=== PATIENT | female | born 1965 | race Caucasian/White ===

== ENCOUNTER 2021-02-25 12:48 | Outpatient (RCR) | payer OTHER ==
[~2021-02-25 12:48] MED LIST: AMBIEN10 MG PO; ESTROGENS0.3 MG PO; FAMILY PHARMACY99 MG PO; ST. JOSEPH81 M1 PO; TYLENOL EXTRA500 M1 PO; ULTRAM50 MG PO
== END 2021-05-26 | disposition home or self-care (01) ==
LOC: PT
DX: M48.02 Spinal stenosis, cervical region (principal); M25.78 Osteophyte, vertebrae

== ENCOUNTER → 2023-04-27 | Outpatient (CLI) | payer OTHER | LOC: RAD 13:30 | DX: H53.2 Diplopia (principal); M47.812 Spondylosis without myelopathy or radiculopathy, cervical region | CPT/HCPCS: A9575 ==

== ENCOUNTER 2023-12-15 16:16 | Emergency (ER) | payer OTHER ==
[~2023-12-15] VITALS: Ht 152.4 cm; Wt 72.3 kg
[~2023-12-15 16:16] MED LIST changes: +AIMOVIG AU140 MG/1 M SQ; +KETOROLAC10 MG PO; +MELOXICAM15 MG PO; +NURTEC ODT75 MG PO; +PROAIR DIGIHAL90 MCG IH; +SERTRALINE50 MG PO; +TOPIRAMATE ER100 MG PO; +TRELEGY ELLIPT1 EACH IH
[2023-12-15] MEDS ORDERED: EPINEPHRIN0.3 MG/0.3 IJ (16:32)
[2023-12-15] MEDS ORDERED: ONDANSETRON HYDR4 MG PO (16:33)
[2023-12-15] MEDS ORDERED: IMITREX6 MG/0.52 SQ (16:33)
[2023-12-15] MEDS ORDERED: TIZANIDINE HYDRO4 MG PO (16:33)
[2023-12-15] MEDS ORDERED: EXCEDRIN MIGRA1 EACH PO (16:34)
[2023-12-15] MEDS ORDERED: VITAMIN D PO (16:34)
[2023-12-15 17:12] LABS: BASO # 0.03 K/mm3 (0.02-0.10); EOS # 0.45 K/mm3 (0.04-0.40); EOS % 8.4 % (1.0-5.0); HEMATOCRIT 44.6 % (37.0-47.0); HEMOGLOBIN 14.4 g/dL (12.5-16.0); LYMPH# 2.15 K/mm3 (1.50-4.00); MEAN CELL VOLUME 90 fl (78-100); MEAN CORPUSCULAR HEMOGLOBIN 29 pg (27-31); MEAN CORPUSCULAR HGB CONC 32 g/dL (33-37); MEAN PLATELET VOLUME 9.9 fl (7.4-10.4); MONO # 0.66 K/mm3 (0.20-0.80); NEU # 2.04 K/mm3 (1.40-6.50); PLATELET COUNT 273 K/mm3 (130-400); RED BLOOD COUNT 4.98 M/mm3 (4.10-5.30); RED CELL DISTRIBUTION WIDTH 12.5 % (11.5-14.5); WHITE BLOOD COUNT 5.3 K/mm3 (4.8-10.8)
[2023-12-15 17:18] LABS: ALBUMIN 3.9 g/dL (3.5-5.0)
[2023-12-15 17:21] LABS: TOTAL PROTEIN 6.7 g/dL (6.4-8.3)
[2023-12-15 17:23] LABS: TOTAL BILIRUBIN 0.3 mg/dL (0.2-1.2)
[2023-12-15 17:27] LABS: MAGNESIUM 2.15 mg/dL (1.60-2.60)
[2023-12-15] MEDS ORDERED: Dextrose/Magnesium Sulfate 100 ML IV ONE (17:45)
[2023-12-15] MEDS ORDERED: Promethazine 50 MG/ML 1 ML VIAL IM ONE (17:45)
[2023-12-15 19:15] VITALS: BP 131/91
== END 2023-12-15 19:15 | disposition home or self-care (01) ==
LOC: ED 16:16
PROVIDERS: Family Medicine
DX: G43.909 Migraine, unspecified, not intractable, without status migrainosus (principal)
CPT/HCPCS: J2550; J3475; J7120

== ENCOUNTER 2024-02-21 14:26 | Emergency (ER) | payer OTHER ==
[~2024-02-21] VITALS: Wt 80.5 kg
[~2024-02-21 14:26] MED LIST changes: +EPINEPHRIN0.3 MG/0.3 IJ; +EXCEDRIN MIGRA1 EACH PO; +IMITREX6 MG/0.52 SQ; +ONDANSETRON HYDR4 MG PO; +TIZANIDINE HYDRO4 MG PO; +VITAMIN D PO
[2024-02-21] MEDS ORDERED: methylPREDNISolone Sod Succ 125 MG/2 ML VIAL IM ONE (14:45)
[2024-02-21] MEDS ORDERED: diphenhydrAMINE 25 MG CAP PO ONE (14:45)
[2024-02-21] MEDS ORDERED: ATORVASTATIN CA10 MG PO (15:20)
[2024-02-21] MEDS ORDERED: SINGULAIR 110 MG/TAB PO (15:20)
[2024-02-21] MEDS ORDERED: VOLTAREN SR25 MG/TAB PO (15:21)
[2024-02-21] MEDS ORDERED: TRELEGY ELLIPT1 EAC1 IH (15:22)
[2024-02-21] MEDS ORDERED: PROCHLORPERAZIN10 M2 PO (15:23)
[2024-02-21] MEDS ORDERED: SUNMARK ALLERGY10 M1 PO (15:25)
[2024-02-21] MEDS ORDERED: MAGNESIUM OXID400 M2 PO (15:26)
[2024-02-21] MEDS ORDERED: ANTIVERT12.5 M1 PO (15:27)
[2024-02-21] MEDS ORDERED: PROBIOTIC1 EAC1 PO (15:28)
[2024-02-21] MEDS ORDERED: FORMULA (15:28)
[2024-02-21] MEDS ORDERED: VITAMIN D3 PO (15:29)
[2024-02-21 16:23] VITALS: BP 119/82
== END 2024-02-21 16:28 | disposition home or self-care (01) ==
LOC: ED 14:26
DX: T78.40XA Allergy, unspecified, initial encounter (principal); E66.9 Obesity, unspecified; X58.XXXA Exposure to other specified factors, initial encounter
CPT/HCPCS: J2919